=== PATIENT | female | born 1945 | race Caucasian/White ===

== ENCOUNTER 2017-01-03 20:40 | Inpatient (IN) | payer MEDICARE, OTHER ==
[~2017-01-03] VITALS: Ht 162.6 cm; Wt 87.2 kg
[2017-01-03] MEDS ORDERED: MORPHINE SULFATE 4 MG/ML, 1ML IVPush PRN (21:00)
[2017-01-03] MEDS ORDERED: PLEASE ENTER HEIGHT AND WEIGHT MC SCH (21:00)
[2017-01-03] MEDS ORDERED: SODIUM CHLORIDE FLUSH 10ML SYR IVF ONE (21:00)
[2017-01-03] MEDS ORDERED: PLEASE ENTER ALLERGIES MC SCH ×2 (21:00)
[2017-01-03 21:09] LABS: HEMOGLOBIN 15.1 g/dL (11.7-16.4); WHITE BLOOD COUNT 10.6 x10^3/uL (3.4-10)
[2017-01-03 21:19] LABS: ASPARTATE AMINO TRANSFERASE 9 U/L (15-37); BLOOD UREA NITROGEN 25 mg/dL (7-18)
[2017-01-03 21:26] LABS: IS PT STATUS REG ER OR PRE ER? YES
[2017-01-03] MEDS ORDERED: GLUCAGON 1 MG IM PRN (23:00)
[2017-01-03] MEDS ORDERED: DEXTROSE 50%, 50ML SYRINGE IVPush PRN (23:00)
[2017-01-03] MEDS ORDERED: DEXTROSE 4 GM TAB.CHEW PO PRN (23:00)
[2017-01-03] MEDS ORDERED: GABA-827 PO (23:10)
[2017-01-03] MEDS ORDERED: BUDE10.2 INH (23:10)
[2017-01-03] MEDS ORDERED: LISI-167 PO (23:11)
[2017-01-03] MEDS ORDERED: ATOR20TA9 PO (23:11)
[2017-01-03] MEDS ORDERED: INSU100V8 SQ (23:11)
[2017-01-03] MEDS ORDERED: METO50TA4 PO (23:11)
[2017-01-03] MEDS ORDERED: INSU100C5 SQ-INSULIN (23:11)
[2017-01-03] MEDS ORDERED: METF500T4 PO (23:11)
[2017-01-03] MEDS ORDERED: CLOP75TA52 PO (23:12)
[2017-01-03] MEDS ORDERED: ASPI81TA50 PO (23:12)
[2017-01-03] MEDS ORDERED: ONDANSETRON 2MG/ML, 2ML IVPush PRN (23:30)
[2017-01-03] MEDS ORDERED: morphine SULFATE 10 MG/ML, 1ML IVPush PRN (23:30)
[2017-01-03] MEDS ORDERED: NITROGLYCERIN 0.4 MG/SPRAY SL PRN (23:30)
[2017-01-03] MEDS: INSULIN DETEMIR 100 UNITS/ML, PEN SQ-INSULIN SCH (23:30)
[2017-01-03] MEDS ORDERED: LABETALOL 5MG/ML, 20ML IVPush PRN (23:30)
[2017-01-03] MEDS ORDERED: NITROGLYCERIN 0.4 MG BOTTLE (25 TABS) SL PRN (23:30)
[2017-01-03] MEDS ORDERED: ENALAPRILAT 1.25 MG/ML, 2ML IVPush PRN (23:30)
[2017-01-04 00:25] LABS: IS PT STATUS REG ER OR PRE ER? YES
[2017-01-04 02:54] VITALS: BP 118/71
[2017-01-04] MEDS ORDERED: FURO-92 PO (03:14)
[2017-01-04 03:18] VITALS: BP 118/71
[2017-01-04] MEDS: ENOXAPARIN 40 MG/0.4 ML SQ SCH ×2 (03:40→22:46)
[2017-01-04 05:38] LABS: HEMATOCRIT 45.7 % (34.6-47.8); WHITE BLOOD COUNT 9.3 x10^3/uL (3.4-10)
[2017-01-04 05:58] LABS: IS PT STATUS REG ER OR PRE ER? NO
[2017-01-04 06:12] LABS: ASPARTATE AMINO TRANSFERASE 12 U/L (15-37); BLOOD UREA NITROGEN 21 mg/dL (7-18)
[2017-01-04] MEDS: INSULIN ASPART 100 UNITS/ML, PEN SQ-INSULIN SCH ×4 (07:00→21:07)
[2017-01-04 07:21] VITALS: BP 129/63
[2017-01-04] MEDS ORDERED: REGADENOSON 0.4 MG/5 ML SYRINGE ONE (07:45)
[2017-01-04] MEDS: METOPROLOL SUCCINATE 50 MG TAB.ER.24H PO SCH (07:47)
[2017-01-04] MEDS: ACETAMINOPHEN 325 MG TABLET PO PRN ×3 (07:47→18:02)
[2017-01-04] MEDS: LISINOPRIL 10 MG TABLET PO SCH (07:47)
[2017-01-04] MEDS: SODIUM CHLORIDE FLUSH 10ML SYR IVF SCH ×2 (07:47→21:08)
[2017-01-04] MEDS: ASPIRIN 81 MG TABLET EC PO SCH (07:47)
[2017-01-04] MEDS: GABAPENTIN 400 MG CAPSULE PO SCH ×3 (07:47→21:07)
[2017-01-04] MEDS: CLOPIDOGREL 75 MG TABLET PO SCH (07:47)
[2017-01-04] MEDS: FLUTICASONE/VILANTEROL 100-25MCG/INH INH SCH (08:05)
[2017-01-04] MEDS: NICOTINE 21 MG/24 HR PATCH.TD24 TD SCH (11:11)
[2017-01-04] MEDS: INSULIN DETEMIR 100 UNITS/ML, PEN SQ-INSULIN SCH ×2 (12:17→22:47)
[2017-01-04] MEDS ORDERED: SODIUM CHLORIDE 0.9% 1,000 ML IV ONE (13:42)
[2017-01-04] MEDS ORDERED: BIVALIRUDIN 250 MG ONE (13:46)
[2017-01-04] MEDS ORDERED: MIDAZOLAM 1 MG/ML, 5ML ONE (13:46)
[2017-01-04] MEDS ORDERED: TICAGRELOR 90 MG TABLET ONE (13:46)
[2017-01-04] MEDS ORDERED: FENTANYL PF 100 MCG/2ML ONE (13:46)
[2017-01-04] MEDS ORDERED: VERAPAMIL 2.5 MG/ML, 2ML ONE (13:46)
[2017-01-04] MEDS ORDERED: HEPARIN 1,000 UNITS/ML, 10ML ONE (13:47)
[2017-01-04] MEDS ORDERED: LIDOCAINE 2%, 20ML ONE (13:47)
[2017-01-04 14:47] VITALS: BP 106/62
[2017-01-04] MEDS ORDERED: NITROGLYCERIN 5 MG/ML, 10ML ONE (16:15)
[2017-01-04] MEDS: SODIUM CHLORIDE 0.9% 1,000 ML IV SCH (17:07)
[2017-01-04 19:00] VITALS: BP 102/65
[2017-01-04] MEDS ORDERED: ATORVASTATIN 20 MG TABLET PO SCH (21:00)
[2017-01-05] MEDS: SODIUM CHLORIDE 0.9% 1,000 ML IV SCH ×2 (00:49→09:07)
[2017-01-05 00:54] VITALS: BP 120/70
[2017-01-05] MEDS: INSULIN ASPART 100 UNITS/ML, PEN SQ-INSULIN SCH ×2 (07:00→11:00)
[2017-01-05 07:04] VITALS: BP 123/59
[2017-01-05] MEDS: SODIUM CHLORIDE FLUSH 10ML SYR IVF SCH (09:00)
[2017-01-05] MEDS: GABAPENTIN 400 MG CAPSULE PO SCH (09:42)
[2017-01-05] MEDS: ASPIRIN 81 MG TABLET EC PO SCH (09:42)
[2017-01-05] MEDS: FLUTICASONE/VILANTEROL 100-25MCG/INH INH SCH (09:42)
[2017-01-05] MEDS: LISINOPRIL 10 MG TABLET PO SCH (09:42)
[2017-01-05] MEDS: METOPROLOL SUCCINATE 50 MG TAB.ER.24H PO SCH (09:42)
[2017-01-05] MEDS: CLOPIDOGREL 75 MG TABLET PO SCH (09:42)
[2017-01-05] MEDS: NICOTINE 21 MG/24 HR PATCH.TD24 TD SCH (09:43)
[2017-01-05] MEDS ORDERED: ISOSORBIDE MONONITRATE ER 30 MG TABLET PO SCH (11:00)
[2017-01-05] MEDS ORDERED: ISOS30TA8 PO (11:16)
[2017-01-05] MEDS: INSULIN DETEMIR 100 UNITS/ML, PEN SQ-INSULIN SCH (11:30)
[2017-01-06] MEDS ORDERED: ISOSORBIDE MONONITRATE ER 30 MG TABLET PO SCH (09:00)
== END 2017-01-05 12:42 | disposition home or self-care (01) | DRG 287 ==
LOC: ED 21:16 → EDIP 21:54 → SUATTDRO 22:55 → 5SO 01-04 03:25
PROVIDERS: ADMIT Internal Medicine; ATTEND Internal Medicine
PROC: 4A023N7 Measurement of Cardiac Sampling and Pressure, Left Heart, Percutaneous Approach (ICD-10-PCS; principal; 2017-01-04)
PROC: B2111ZZ Fluoroscopy of Multiple Coronary Arteries using Low Osmolar Contrast (ICD-10-PCS; 2017-01-04)
PROC: B2131ZZ Fluoroscopy of Multiple Coronary Artery Bypass Grafts using Low Osmolar Contrast (ICD-10-PCS; 2017-01-04)
PROC: B31N1ZZ Fluoroscopy of Other Upper Arteries using Low Osmolar Contrast (ICD-10-PCS; 2017-01-04)
DX: I25.119 Atherosclerotic heart disease of native coronary artery with unspecified angina pectoris (principal); T82.898A Other specified complication of vascular prosthetic devices, implants and grafts, initial encounter; E11.42 Type 2 diabetes mellitus with diabetic polyneuropathy; I25.82 Chronic total occlusion of coronary artery; J44.9 Chronic obstructive pulmonary disease, unspecified; E11.65 Type 2 diabetes mellitus with hyperglycemia; E78.5 Hyperlipidemia, unspecified; F17.210 Nicotine dependence, cigarettes, uncomplicated; I10 Essential (primary) hypertension; I73.9 Peripheral vascular disease, unspecified; R09.02 Hypoxemia; Z95.1 Presence of aortocoronary bypass graft; Z99.81 Dependence on supplemental oxygen; Z95.5 Presence of coronary angioplasty implant and graft; Y83.2 Surgical operation with anastomosis, bypass or graft as the cause of abnormal reaction of the patient, or of later complication, without mention of misadventure at the time of the procedure; Y92.89 Other specified places as the place of occurrence of the external cause; R74.8 Abnormal levels of other serum enzymes
CPT/HCPCS: 36415; 78452; 80053; 80061; 82962; 83880; 84443; 84484; 85025; 85610; 85730; 93005; 93017; 93306; 93458; 96374; 99156; 99157; C1894; J0583; J1644; J1650; J1815; J2250; J2785; J3010; J3490; A9502; C1887; C9898; J2270; J7030; Q9967

== ENCOUNTER → 2019-07-06 | Outpatient (CLI) | payer MEDICARE, OTHER ==
[~2019-07-06] MED LIST: ASPI81TA50 PO; ATOR20TA37 PO; BUDE10.2 INH; CLOP75TA52 PO; FURO-92 PO; GABA-827 PO; INSU100C5 SQ-INSULIN; INSU100V8 SQ; ISOS30TA8 PO; LISI-167 PO; METF500T17 PO; METO50TA4 PO
== END | disposition home or self-care (01) ==
LOC: CFH 13:36
PROVIDERS: ATTEND Internal Medicine Cardiovascular Disease
DX: Z01.810 Encounter for preprocedural cardiovascular examination (principal); I07.1 Rheumatic tricuspid insufficiency; I10 Essential (primary) hypertension; E78.5 Hyperlipidemia, unspecified
CPT/HCPCS: 93306

== ENCOUNTER → 2019-07-31 | Outpatient (CLI) | payer MEDICARE, OTHER ==
[~2019-07-31] MED LIST changes: +REGADENOSON 0.4 MG/5 ML SYRINGE ONE
== END | disposition home or self-care (01) ==
LOC: CFH 11:40
PROVIDERS: ATTEND Internal Medicine Cardiovascular Disease
DX: Z01.810 Encounter for preprocedural cardiovascular examination (principal); I25.5 Ischemic cardiomyopathy; I10 Essential (primary) hypertension; I25.89 Other forms of chronic ischemic heart disease; I21.29 ST elevation (STEMI) myocardial infarction involving other sites
CPT/HCPCS: 78452; 93017; A9502; J2785

== ENCOUNTER 2019-09-18 09:31 | Day surgery (SDC) | payer MEDICARE, OTHER ==
[~2019-09-18] VITALS: Ht 162.6 cm; Wt 75.0 kg
[~2019-09-18 09:31] MED LIST changes: -REGADENOSON 0.4 MG/5 ML SYRINGE ONE
[2019-09-18] MEDS ORDERED: SODIUM CHLORIDE 0.9% 1,000 ML IV SCH (10:12)
[2019-09-18 10:18] VITALS: BP 122/80
[2019-09-18] MEDS ORDERED: AMOX-291 PO (10:33)
[2019-09-18 10:36] LABS: BASOPHILS # (AUTO) 0.01 x10^3/uL (0-0.1); BASOPHILS % (AUTO) 0 % (0-1); EOSINOPHILS # (AUTO) 0.21 x10^3/uL (0-0.4); EOSINOPHILS % (AUTO) 2 % (1-7); LYMPHOCYTES # (AUTO) 1.76 x10^3/uL (1-3.4); LYMPHOCYTES % (AUTO) 14 % (22-44); MD NO; MEAN CORPUSCULAR HEMOGLOBIN 29.7 pg (27.0-34.8); MEAN CORPUSCULAR HGB CONC 33.1 g/dL (32.4-35.8); MEAN CORPUSCULAR VOLUME 89.7 fL (80-100); MEAN PLATELET VOLUME 9.2 fL (7.4-10.4); MONOCYTES # (AUTO) 0.56 x10^3/uL (0.2-0.8); MONOCYTES % (AUTO) 5 % (2-9); NEUTROPHILS % (AUTO) 79 % (42-75); PLATELET COUNT 209 x10^3/uL (130-400); RED BLOOD COUNT 4.28 x10^6/uL (3.82-5.3); RED CELL DISTRIBUTION WIDTH 14.3 % (9.6-15.2)
[2019-09-18] MEDS ORDERED: CARV3.1212 PO (10:40)
[2019-09-18] MEDS ORDERED: DULO30CA2 PO (10:41)
[2019-09-18] MEDS ORDERED: APIX5TAB PO (10:42)
[2019-09-18] MEDS ORDERED: ISOS60TA36 PO (10:44)
[2019-09-18 10:46] LABS: ALBUMIN 3.5 g/dL (3.4-5.0); ANION GAP 7 mmol/L (5-15); CHLORIDE 106 mmol/L (98-107)
[2019-09-18] MEDS ORDERED: UBID50TA3 PO (10:46)
[2019-09-18] MEDS ORDERED: LORA10TA41 PO (10:46)
[2019-09-18] MEDS ORDERED: OMEG-157 PO (10:47)
[2019-09-18] MEDS ORDERED: CHOL500050 PO (10:48)
[2019-09-18] MEDS ORDERED: multivit (10:49)
[2019-09-18 10:51] LABS: ALANINE AMINOTRANSFERASE 21 U/L (12-78); ALKALINE PHOSPHATASE 51 U/L (45-117); BILIRUBIN, DIRECT 0.1 mg/dL (0.1-0.2); BILIRUBIN,INDIRECT 0.3 mg/dL (0.0-2.0); BILIRUBIN,TOTAL 0.4 mg/dL (0.2-1.0); CREATININE 0.96 mg/dL (0.55-1.02); TOTAL PROTEIN 7.5 g/dL (6.4-8.2)
[2019-09-18 10:59] LABS: INTERNATIONAL NORMALIZED RATIO 0.93 (0.93-1.1); PROTHROMBIN TIME 9.8 Seconds (9.6-11.5)
[2019-09-18 11:58] LABS: CHOL/HDL RATIO 3.9; LDL/HDL RATIO 2.2 (0.5-3.0)
[2019-09-18] MEDS ORDERED: FENTANYL PF 100 MCG/2ML ONE (12:41)
[2019-09-18] MEDS ORDERED: VERAPAMIL 2.5 MG/ML, 2ML ONE (12:41)
[2019-09-18] MEDS ORDERED: MIDAZOLAM 1 MG/ML, 5ML ONE (12:41)
[2019-09-18] MEDS ORDERED: TICAGRELOR 90 MG TABLET ONE (12:41)
[2019-09-18] MEDS ORDERED: BIVALIRUDIN 250 MG ONE (12:42)
[2019-09-18] MEDS ORDERED: HEPARIN 1,000 UNITS/ML, 10ML ONE (12:42)
[2019-09-18] MEDS ORDERED: LIDOCAINE-MPF 1%, 5ML ONE (12:42)
[2019-09-18 14:22] VITALS: BP 127/67
== END 2019-09-18 18:32 | disposition home or self-care (01) ==
LOC: CACL 09:31 → 5SO 14:34 → CACL 18:32
PROVIDERS: ATTEND Internal Medicine Cardiovascular Disease
DX: R94.39 Abnormal result of other cardiovascular function study (principal); I25.118 Atherosclerotic heart disease of native coronary artery with other forms of angina pectoris; I25.83 Coronary atherosclerosis due to lipid rich plaque; I25.82 Chronic total occlusion of coronary artery; I70.202 Unspecified atherosclerosis of native arteries of extremities, left leg; I10 Essential (primary) hypertension; E78.5 Hyperlipidemia, unspecified; I25.5 Ischemic cardiomyopathy; E11.9 Type 2 diabetes mellitus without complications; J44.9 Chronic obstructive pulmonary disease, unspecified; Z95.1 Presence of aortocoronary bypass graft
CPT/HCPCS: 36415; 80048; 80061; 80076; 85025; 85610; 93459; 93567; 99156; 99157; C1769; C1894; J2250; J3010; Q9967; 93458; G0378; J0583; J1644